=== PATIENT | female | born 1960 | race Caucasian/White ===

== ENCOUNTER 2020-08-15 09:53 | Outpatient (CLI) | payer BC, OTHER, SELFPAY ==
--- NOTE | ~2020-08-15 | XR_ITS ---
XR shoulder RT min 2V DATE: 08/15/2020 10:19 INDICATION: Right shoulder pain TECHNIQUE: 4 views COMPARISON: None FINDINGS: No fracture or dislocation, periosteal reaction or bone destruction or abnormal soft tissue calcification. IMPRESSION: No fracture or dislocation Reviewed, dictated and finalized at location A. D DAY CARE TEACHER IMPRESSION: No fracture or dislocation
--- NOTE | ~2020-08-15 | XR_ITS ---
XR cervical spine 4-5V DATE: 08/15/2020 10:19 INDICATION: Neck pain, shoulder pain. No injury. TECHNIQUE: AP, open-mouth, lateral, swimmer views COMPARISON: None FINDINGS: There is straightening of the cervical spine, which may be secondary to muscle spasm. There is minimal anterolisthesis at C4-5 and C5-6. C1 and C2 are normally aligned and the odontoid process is intact. No fracture or dislocation or lock ed facet or prevertebral soft tissue swelling. Cervical interspaces are preserved. IMPRESSION: Straightening of the cervical spine Minimal anterolisthesis at C4-5 and C5-6 Reviewed, dictated and finalized at location A. KING MACHINE OPERATOR
== END 2020-08-15 09:54 | disposition home or self-care (01) ==
PROVIDERS: PCP Family Medicine; Visit Provider Physician Assistant
DX: M54.2 Cervicalgia (principal); M25.511 Pain in right shoulder
CPT/HCPCS: 72050; 73030

== ENCOUNTER → 2021-10-21 08:59 | Outpatient (CLI) | payer BC, SELFPAY ==
[2021-10-21 11:23] LABS: SARS-CoV-2 RNA PCR Positive
== END ==
PROVIDERS: PCP Family Medicine; Visit Provider Family Medicine
DX: U07.1 COVID-19 (principal)
CPT/HCPCS: C9803; U0003; U0005

== ENCOUNTER 2021-10-21 14:23 | Outpatient (RCR) | payer BC, SELFPAY ==
[2021-10-21 15:02] VITALS: BP 162/57; PULSE 79; RESP 16; TEMP 36.5; O2SAT 97
[2021-10-21] MEDS: ACETAMINOPHEN 325 MG TABLET 650 MG PO (15:05)
[2021-10-21] MEDS: FAMOTIDINE 20 MG TABLET PO (15:05)
[2021-10-21] MEDS: diphenhydrAMINE HCl CAP 25 MG CAPSULE PO (15:05)
[2021-10-21] MEDS: BEBTELOVIMAB 175 MG/2 ML VIAL IV PUSH (15:30)
[2021-10-21 16:10] VITALS: BP 147/53; PULSE 73; RESP 16; O2SAT 96
== END 2021-10-21 16:00 ==
LOC: AMCINF 14:23
PROVIDERS: Referring Provider Family Medicine; Visit Provider Internal Medicine Hematology & Oncology
DX: U07.1 COVID-19 (principal); I10 Essential (primary) hypertension
CPT/HCPCS: A9270; M0222; Q0222

== ENCOUNTER 2022-07-20 07:32 | Outpatient (RCR) | payer BC, SELFPAY ==
[2022-07-19 15:39] LABS: Hematocrit 27.3 % (37.0-47.0); Hemoglobin 7.3 g/dL (12.0-15.0)
[2022-07-20] VITALS (11 sets, daily range): BP systolic 129–163; BP diastolic 42–66; PULSE 80–97; RESP 15–18; TEMP 36.3–36.9; O2SAT 95–99
[2022-07-20] MEDS: SODIUM CHLORIDE 0.9% IV 250 ML 30 ML IV CONT (07:50)
== END 2022-10-17 23:59 | disposition home or self-care (01) ==
LOC: ANHCPCTRAN 07:32
PROVIDERS: PCP Physician Assistant; Visit Provider Family Medicine
DX: D64.9 Anemia, unspecified (principal)
CPT/HCPCS: 36415; 36430; 85014; 85018; 86850; 86900; 86901; 86920; J7050; P9016

== ENCOUNTER 2022-08-26 11:28 | Emergency (ER) | payer BC, SELFPAY ==
--- NOTE | ~2022-08-26 | XR_ITS ---
EXAMINATION: XR chest 2V Exam Date/Time: 08/26/2022 15:30 ROD PLACER HISTORY: leukocytosis, SEVERE ABDOMINAL PAIN Comparison: None available. RESULT: Lines, tubes, and devices: None. Lungs and pleura: Low lung volumes with crowding.. Cardiomediastinal silhouette: Stable. Other: No acute osseous or upper abdominal finding. IMPRESSION: No acute cardiopulmonary process. Reviewed, dictated and finalized at location K. PLACER
--- NOTE | ~2022-08-26 | CT_ITS ---
EXAMINATION: CT abdomen pelvis w con DATE: 08/26/2022 14:36 INDICATION: abd pain, vomiting, leukocytosis TECHNIQUE: Computed tomography (CT) of the abdomen and pelvis was performed with 100 mL Omnipaque-350 intravenous contrast. Automated exposure control and iterative reconstruction technique were employe d. The dose-length product was 1474.89 mGy-cm. COMPARISON: Ultrasound abdomen 03/21/2018. FINDINGS: Lower thorax: Multiple pulmonary nodules, measuring up to 7 mm. Liver: 4.8 cm indeterminate lobular left lobe mass. No other liver mass. Biliary/Gallbladder: Gallbladder is absent. No bile duct dilation. Pancreas: No mass or duct dilation. Spleen: Normal. Adrenals:No mass. Kidneys: No mass, stone, or hydronephrosis. GI tract: No small or large bowel dilation. The appendix is not visualized. Irregular wall thickening of the cecum with surrounding inflammatory change/spiculation. Mesentery/Peritoneum: No ascites, mass, or free air. Multiple prominent periaortic nodes. Enlarged ri ght lower quadrant mesenteric nodes. Retroperitoneum: No mass. Pelvis: Pelvic organs are within normal limits. Soft Tissues: Soft tissues and body wall unremarkable. Bones: No acute osseous finding. IMPRESSION: Multiple pulmonary nodules, suspicious for metastatic disease. Indeterminate hepatic mass, consider l iver MRI for further evaluation. Cecal mass, concerning for carcinoma, with adjacent right lower quad rant mesenteric lymphadenopathy. Reviewed, dictated and finalized at location K. NEWS DIRECTOR IMPRESSION: Multiple pulmonary nodules, suspicious for metastatic disease. Indeterminate he patic mass, consider liver MRI for further evaluation. Cecal mass, concerning f or carcinoma, with adjacent right lower quadrant mesenteric lymphadenopathy.
[2022-08-26 11:42] VITALS: BP 149/77; PULSE 98; RESP 18; TEMP 36.6; O2SAT 95
[2022-08-26 12:36] LABS: Basophils Absolute Auto 0.1 K/mm3 (0.0-0.1); Basophils Percent Auto 0.3 % (0.2-1.2); Hematocrit 34.5 % (37.0-47.0); Hemoglobin 9.9 g/dL (12.0-15.0); Immature Granulocyte Percent A 0.5 % (0-0.5); Lymphocytes Percent Auto 2.9 % (18.3-44.2); Mean Corpuscular HGB Conc 28.7 g/dl (32-36); Mean Corpuscular Hemoglobin 21.6 pg (26-34); Mean Corpuscular Volume 75.2 fl (80-100); Mean Platelet Volume 9.2 fl (7.4-10.4); Monocytes Absolute Auto 0.7 K/mm3 (0.1-0.6); Monocytes Percent Auto 3.5 % (2.6-8.5); Neutrophils Absolute Auto 19.5 K/mm3 (1.3-6.7); Neutrophils Percent Auto 92.8 % (45.5-73.1); Platelet Count Result 326 k/mm3 (150-375); Red Blood Count 4.59 M/mm3 (4.2-5.4)
[2022-08-26 12:46] LABS: Alanine Aminotransferase 20 U/L (6-35); Albumin Level 4.4 g/dL (3.5-5.1); Alkaline Phosphatase 85 U/L (38-126); Anion Gap 6 mmol/L (8-16); Aspartate Amino Transferase 23 U/L (14-36); Bilirubin,Total 0.8 mg/dL (0.2-1.3); Blood Urea Nitrogen 12 mg/dL (7-17); Calcium 8.5 mg/dL (8.4-10.2); Carbon Dioxide 29 mmol/L (22-30); Chloride 98 mmol/L (98-107); Estimated CRCL calculation 123 ml/min; Estimated Glomerular Filt Rate > 60; Glucose 133 mg/dL (65-110); Lipase 24 U/L (23-300); Potassium 3.7 mmol/L (3.4-5.0); Sodium 133 mmol/L (137-145)
[2022-08-26 14:15] LABS: Appearance Urine Clear (Clear); Bacteria Urine Rare /hpf; Bilirubin Urine Negative (Negative); Blood Urine Negative (Negative); Color Urine Yellow (Yellow); Glucose Urine UA Negative (Negative); Ketones Urine Trace mg/dL (Negative); Leukocyte Esterase Ur 1+ LEU/UL (Negative); Need Manual Microscopic Reviewed; Nitrate Urine Negative (Negative); Non Pathogenic Casts 0-2; Protein Urine Trace mg/dL (Negative); RBC Urine 0-2 /hpf (0-2); Specific Grav Ur 1.019 (1.001-1.035); Squamous Epithelial Cell Urine None seen /hpf (Few); WBC Urine 0-5 /hpf
[2022-08-26 14:17] LABS: Add Urine Microscopic? YES
[2022-08-26] MEDS: ONDANSETRON INJ 4 MG/2 ML VIAL IV PUSH (14:19)
[2022-08-26] MEDS: MORPHINE SULFATE (*CRX) 4 MG/ML INJ IV PUSH (14:19)
[2022-08-26] MEDS: SODIUM CHLORIDE 0.9% IV 500 ML 999 ML IV CONT (14:20)
--- NOTE | 2022-08-26 14:35 | ED.ABDPAIN ---
HPI - Abdominal Pain General Chief Complaint: Abdominal Pain Stated Complaint: abdominal pain/back pain Time Seen by Provider: 08/26/22 13:34 Source: patient Mode of arrival: ambulatory Limitations: no limitations History of Present Illness HPI narrative: This is a 62 year old female that presents to the ER for abdominal pain ongoing since yesterday. Associated with nausea and vomiting. Reports she was recently diagnosed with colon cancer and is due for surgery. Denies fever, dysuria or hematuria. Related Data Home Medications Medication Instructions Recorded Confirmed meloxicam 15 mg tablet 15 mg PO DAILY PRN Pain 10/21/21 07/20/22 omeprazole 20 mg tablet,delayed 20 mg PO DAILY 10/21/21 07/20/22 release cholecalciferol (vitamin D3) 125 125 mcg PO DAILY 07/12/22 07/20/22 mcg (5,000 unit) capsule alprazolam 0.5 mg tablet 0.5 mg PO TID PRN Anxiety 07/18/22 07/20/22 escitalopram oxalate 20 mg tablet 20 mg PO DAILY 07/18/22 07/20/22 hydrochlorothiazide 25 mg tablet 25 mg PO DAILY 07/18/22 07/20/22 ramipril 10 mg capsule 10 mg PO DAILY 07/18/22 07/20/22 Allergies Allergy/AdvReac Type Severity Reaction Status Date / Time No Known Allergies Allergy Mild Verified 08/26/22 11:46 Review of Systems Review of Systems: CONSTITUTIONAL: Denies fever GASTROINTESTINAL: Reports abdominal pain, nausea, vomiting. Denies diarrhea. GENITOURINARY: Denies dysuria or hematuria. All systems reviewed & are unremarkable except as noted in HPI and below PMFSH Past Medical History Medical History (Updated 08/26/22 @ 16:37 by Vianney Mccoy PA-C) Allergic rhinitis, unspecified Anemia Anxiety Esophageal reflux Essential (primary) hypertension Insomnia, unspecified Major depressive disorder, recurrent, moderate Morbid (severe) obesity due to excess calories Obstructive sleep apnea Postprocedural hypothyroidism Sleep apnea Vitamin D deficiency, unspecified Surgical History Surgical History History of hysterectomy uterus only, bladder suspension 12/2013 History of thyroidectomy 2008 Hx of cholecystectomy 2002 S/P removal of thyroid nodule 1991 Family History Family History (Updated 07/20/22 @ 07:50 by Judith Machuca RN) Mother Colitis Mouth cancer Age-related macular degeneration Father Bladder cancer Alzheimer disease Depression COPD (chronic obstructive pulmonary disease) Carcinoma of colon Age-related macular degeneration Hypertension Social History Social History (Updated 07/18/22 @ 14:10 by Julia Amin MA) Smoking status: Former smoker Smoking end date: 07/02/79 Alcohol intake: never Substance use: never Lack of Transportation: No Lack of Food: Never True Current Housing: I Have Housing Concerned About Future Housing: No Difficulty Paying Gas/Electric Bills: No Difficulty Paying for Meds: No Currently Unemployed: No Living arrangements: with family Occupation/Education: occupation Gender identity (if verbalized by the patient): Female Sexual Orientation (if Verbalized by the Patient): Straight or Heterosexual Exam Narrative: GENERAL: Well-appearing, well-nourished, and in no acute distress. HEAD: Normocephalic, atraumatic. EYES: EOMI. CHEST: Clear to auscultation. No respiratory distress. No wheezes rales or rhonchi HEART: Regular rate and rhythm. No murmur heard. Normal peripheral pulses. ABDOMEN: Soft, nondistended, normal active bowel sounds. Tender to palpation throughout the right side of the abdomen, without guarding EXTREMITIES: Normal range of motion. No edema. SKIN: Warm, dry, no rash. NEURO: No focal deficits. Alert and oriented x3. PSYCH: Normal mood and affect Course Course Emergency Course: Patient and family updated on work-up and agree with plan of care Consultations Consultation #1: Spoke with Dr. Rapp about patient and workup. Would like patient started on antibio
[2022-08-26] MEDS: PANTOPRAZOLE SODIUM IV 40 MG VIAL IV PUSH (15:58)
[2022-08-26 16:41] VITALS: BP 142/84; PULSE 89; RESP 17; O2SAT 98
== END 2022-08-26 16:53 | disposition home or self-care (01) ==
PROVIDERS: Emergency Medicine; Emergency Provider Physician Assistant; PCP Family Medicine
DX: R10.9 Unspecified abdominal pain (principal); D72.829 Elevated white blood cell count, unspecified; C18.9 Malignant neoplasm of colon, unspecified; D64.9 Anemia, unspecified; K21.9 Gastro-esophageal reflux disease without esophagitis; I10 Essential (primary) hypertension; E66.01 Morbid (severe) obesity due to excess calories; E89.0 Postprocedural hypothyroidism; Z68.41 Body mass index [BMI] 40.0-44.9, adult; G47.30 Sleep apnea, unspecified; E55.9 Vitamin D deficiency, unspecified; Z90.711 Acquired absence of uterus with remaining cervical stump; Z87.891 Personal history of nicotine dependence
CPT/HCPCS: 36415; 71046; 74177; 80053; 81001; 83690; 85025; 96365; 96366; 96375; 99284; C9113; J0131; J2270; J2405; J7040; Q9967

== ENCOUNTER 2023-09-30 19:07 | Observation (INO) | payer OTHER, SELFPAY ==
[2023-09-30] VITALS (10 sets, daily range): BP systolic 138–145; BP diastolic 80–108; PULSE 77–100; RESP 11–18; TEMP 35.7–36.4; O2SAT 90–100
--- NOTE | ~2023-09-30 | CT_ITS ---
EXAMINATION: CT cervical spine wo con DATE: 09/30/2023 21:26 INDICATION: Syncope. TECHNIQUE: Computed tomography (CT) of the cervical spine was performed without intravenous contrast. Automated exposure control and iterative reconstruction technique were employed. The dose-length pro duct was 541.27 mGy-cm. COMPARISON: None FINDINGS: There is 7 degrees levocurvature of cervicothoracic spine. Vertebral body heights are sean l. Intervertebral disc heights are normal. The following disc levels are specifically discussed: C2-C3: There is no uncovertebral joint osteoarthritis. There is moderate right and severe left facet joint osteoarthritis. There is no neural foraminal stenosis. There is no central canal stenosis. C3-C4: There is mild left uncovertebral joint osteoarthritis. There is severe bilateral facet joint o steoarthritis. There is no neural foraminal stenosis. There is no central canal stenosis. C4-C5: There is mild bilateral uncovertebral joint osteoarthritis. There is severe bilateral facet daya int osteoarthritis. There is mild left neural foraminal stenosis. There is no central canal stenosis. C5-C6: There is no uncovertebral joint osteoarthritis. There is severe bilateral facet joint osteoart hritis. There is mild left neural foraminal stenosis. There is no central canal stenosis. C6-C7: There is no uncovertebral joint osteoarthritis. There is mild bilateral facet joint osteoarthr itis. There is no neural foraminal stenosis. There is no central canal stenosis. C7-T1: There is no uncovertebral joint osteoarthritis. There is severe bilateral facet joint osteoart hritis. There is mild left neural foraminal stenosis. There is no central canal stenosis. IMPRESSION: 1. No fracture. 2. Mild cervical spondylosis. Reviewed, dictated and finalized at location E.
--- NOTE | ~2023-09-30 | CT_ITS ---
EXAMINATION: CT brain wo con DATE: 09/30/2023 21:26 INDICATION: Syncope. TECHNIQUE: Computed tomography (CT) of the head was performed without intravenous contrast. The mA wa s adjusted according to patient size. Iterative reconstruction technique was employed. The dose-lengt h product was 681.00 mGy-cm. COMPARISON: None FINDINGS: There is no intracranial hemorrhage, acute infarction, or abnormal intracranial mass lesion . The ventricles are normal in size. There is mild mucosal thickening in the paranasal sinuses. The m astoid air cells are normal. The orbits are normal. IMPRESSION: 1. Normal brain. Reviewed, dictated and finalized at location E. IMPRESSION: 1. Normal brain.
--- NOTE | ~2023-09-30 | CT_ITS ---
[facility] DATE: 09/30/2023 21:26 INDICATION: Syncope. Colon cancer. TECHNIQUE: Computed tomography (CT) of the chest, abdomen, pelvis, thoracic spine, and lumbar spine w as performed with 100 mL Omnipaque 350 intravenous contrast. Automated exposure control and iterative reconstruction technique were employed. The dose-length product was 1811.32 mGy-cm. COMPARISON: None FINDINGS: CHEST CT: There are a few nodules in the lungs measuring up to 9 mm. A calcified left lung nodule and calcified left hilar lymph nodes are consistent with old granulomatous disease. No pleural effusion. There is a right internal iliac port with tip in proximal right atrium. The heart size is normal. There are co ronary artery calcifications. No pericardial effusion. ABDOMEN/PELVIS CT: There is a 3.2 cm hypodense mass in right hepatic lobe. There are changes of cholecystectomy. The spl een, pancreas, adrenal glands, and kidneys are normal. There are changes of right hemicolectomy. Ther e are no dilated loops of bowel. There is peritoneal nodularity, consistent with carcinomatosis. Ther e is no ascites. There are no pathologically enlarged lymph nodes. THORACIC SPINE CT: There is 3 degrees levocurvature of thoracic spine. There is mild chronic anterior wedging of T7 and T8 vertebral bodies. There is a burst fracture of T12 with 1/5 loss of height and retropulsion of bon e 3 mm into central spinal canal. There is mildly distended T7-T8. There is mildly decreased disc hei ght at a few other levels. There is multilevel facet joint osteoarthritis, severe at a few levels. Th ere is multilevel mild neural foraminal stenosis bilaterally. There is mild central canal stenosis at T7-T8 and T12. LUMBAR SPINE CT: There is 7 degrees levocurvature of lumbar spine. There is 3 mm anterolisthesis of L5 on S1. Vertebra l body heights are normal. Intervertebral disc heights are normal. The following disc levels are spec ifically discussed: L1-L2: The disc does not extend beyond the endplate margin. There is moderate bilateral facet joint o steoarthritis. There is no neural foraminal stenosis. There is no central canal stenosis. L2-L3: The disc is bulging. There is moderate bilateral facet joint osteoarthritis. There is mild juliet ateral neural foraminal stenosis. There is no central canal stenosis. L3-L4: The disc is bulging. There is severe bilateral facet joint osteoarthritis. There is mild bilat eral neural foraminal stenosis. There is no central canal stenosis. L4-L5: The disc is bulging. There is severe bilateral facet joint osteoarthritis. There is moderate r ight and mild left neural foraminal stenosis. There is mild central canal stenosis. L5-S1: The disc does not extend beyond the endplate margin. There is severe bilateral facet joint ost eoarthritis. There is mild bilateral neural foraminal stenosis. There is no central canal stenosis. IMPRESSION: 1. Lung nodules, liver mass, and peritoneal nodularity, consistent metastatic disease. 2. Age-indeterminate burst fracture of T12. Reviewed, dictated and finalized at location E. IMPRESSION: 1. Lung nodules, liver mass, and peritoneal nodularity, consistent metastatic d isease. 2. Age-indeterminate burst fracture of T12.
--- NOTE | 2023-09-30 19:24 | ECG_ITS ---
Measurements Intervals Waterflow Rate: 89 P: 52 IL: 154 QRS: 22 QRSD: 84 T: 33 QT: 348 QTc: 426 Interpretive Statements SINUS RHYTHM EARLY PRECORDIAL R/S TRANSITION LEFT VENTRICULAR HYPERTROPHY WITH ST-T CHANGE CONSIDER INFERIOR INFARCT, AGE INDETERMINATE ST-T WAVE ABNORMALITY IN ANTEROLATERAL LEADS- CONSIDER ISCHEMIA ABNORMAL ECG NO PREVIOUS ECG AVAILABLE FOR COMPARISON Electronically Signed On 09-30-2023 20:04:55 CDT by Richard Wright D.O.
--- NOTE | 2023-09-30 19:24 | ED.GENADULT ---
HPI - General Adult General Chief complaint: Fall Stated complaint: fall Time Seen by Provider: 09/30/23 19:24 History of Present Illness HPI narrative: Patient is a 63-year-old female with history of metastatic colon cancer, currently receiving chemotherapy, here after a fall that occurred yesterday. She states that around 1:00 p.m. yesterday she was in her kitchen and reached upwards for a bowl out of her cabinet and the next thing that she she knew she woke up on the floor. This was witnessed by her son. She was reportedly unconscious for maybe 10-15 seconds and quickly woke back up. She denies any seizure-like activity, bowel or bladder incontinence. She fell flat backwards onto her back. Unsure if she hit her head. She notes that she has been having middle back pain since yesterday. She notes pain is severe, sharp, worsened pain with any movement including flexion extension. She additionally notes that she gets lightheaded when the pain gets severe and with movement. She denies any bowel or bladder incontinence. She denies any saddle anesthesia. She denies any numbness or weakness in her lower extremities. She is on Eliquis for prior PE and DVT. Related Data Home Medications Medication Instructions Recorded Confirmed meloxicam 15 mg tablet 15 mg PO DAILY PRN Pain 10/21/21 07/20/22 cholecalciferol (vitamin D3) 125 125 mcg PO DAILY 07/12/22 07/20/22 mcg (5,000 unit) capsule apixaban 5 mg tablet (Eliquis) mg 09/30/23 potassium chloride 20 mEq meq PO 09/30/23 tablet,extended release(part/cryst) Allergies Allergy/AdvReac Type Severity Reaction Status Date / Time No Known Allergies Allergy Mild Verified 09/30/23 19:15 [facility] Past Medical History Medical History (Updated 09/30/23 @ 22:44 by Eugenie Mayfield MD) Allergic rhinitis, unspecified Anemia Anxiety Esophageal reflux Essential (primary) hypertension Insomnia, unspecified Major depressive disorder, recurrent, moderate Morbid (severe) obesity due to excess calories Obstructive sleep apnea Postprocedural hypothyroidism (Unknown) Sleep apnea Vitamin D deficiency, unspecified Surgical History Surgical History History of hysterectomy uterus only, bladder suspension 12/2013 History of thyroidectomy 2009 Hx of cholecystectomy 2002 S/P removal of thyroid nodule 1991 Family History Family History (Updated 07/20/22 @ 07:50 by Judith Machuca RN) Mother Colitis Mouth cancer Age-related macular degeneration Father Bladder cancer Alzheimer disease Depression COPD (chronic obstructive pulmonary disease) Carcinoma of colon Age-related macular degeneration Hypertension Social History Social History (Updated 07/18/22 @ 14:10 by Julia Amin MA) Smoking status: Former smoker Smoking end date: 07/02/79 Alcohol intake: never Substance use: never Lack of Transportation: No Lack of Food: Never True Current Housing: I Have Housing Concerned About Future Housing: No Difficulty Paying Gas/Electric Bills: No Difficulty Paying for Meds: No Currently Unemployed: No Living arrangements: with family Occupation/Education: occupation Gender identity (if verbalized by the patient): Female Sexual Orientation (if Verbalized by the Patient): Straight or Heterosexual Exam Narrative: GENERAL: Well-appearing, well-nourished, and in no acute distress. HEAD: Normocephalic, atraumatic. EYES: PERRLA and EOMI. ENT: Nares clear. Mucous membranes moist. NECK: Supple. CHEST: Clear to auscultation. No respiratory distress. HEART: Regular rate and rhythm. Normal peripheral pulses. no chest wall tenderness. ABDOMEN: Soft, Mild diffuse tenderness without rebound or guarding, nondistended. EXTREMITIES: Normal range of motion. No edema. Mild midline lower thoracic spinal tenderness, no step-offs appreciated. Negative straight leg raise. SKIN: Warm, dry,
[2023-09-30] MEDS: MORPHINE SULFATE (*CRX) 4 MG/ML INJ IV PUSH (20:03)
[2023-09-30] MEDS: ONDANSETRON INJ 4 MG/2 ML VIAL IV PUSH (20:03)
--- NOTE | 2023-09-30 20:08 | PC.NURSE ---
Patient has power injectable port. Card copied and placed in patient chart.
[2023-09-30 20:16] LABS: Eosinophils Percent Auto 0.5 % (0-4.4); Hematocrit 39.7 % (37.0-47.0); Hemoglobin 12.6 g/dL (12.0-15.0); Immature Granulocyte Absolute 0.04 K/mm3 (0.00-0.031); Lymphocytes Percent Auto 20.2 % (18.3-44.2); Mean Corpuscular HGB Conc 31.7 g/dl (32-36); Mean Corpuscular Hemoglobin 30.5 pg (26-34); Mean Corpuscular Volume 96.1 fl (80-100); Mean Platelet Volume 9.6 fl (7.4-10.4); Neutrophils Absolute Auto 3.1 K/mm3 (1.3-6.7); Neutrophils Percent Auto 77.3 % (45.5-73.1); Platelet Count Result 215 k/mm3 (150-375); Red Blood Count 4.13 M/mm3 (4.2-5.4); Red Cell Distribution Width 17.2 % (11.5-14.5)
[2023-09-30 20:33] LABS: Lactic Acid Reflex 1.4 mmol/L (0.7-2.0)
[2023-09-30 20:34] LABS: Alanine Aminotransferase 28 U/L (6-35); Alkaline Phosphatase 67 U/L (38-126); Anion Gap 5 mmol/L (4-12); Aspartate Amino Transferase 24 U/L (14-36); Bilirubin,Total 0.8 mg/dL (0.2-1.3); Blood Urea Nitrogen 22 mg/dL (7-17); Calcium 8.6 mg/dL (8.4-10.2); Carbon Dioxide 31 mmol/L (22-30); Chloride 98 mmol/L (98-107); Estimated CRCL calculation 116 ml/min; Estimated Glomerular Filt Rate > 60; Glucose 110 mg/dL (65-110); Potassium 3.3 mmol/L (3.4-5.0); Prothrombin Time 13.9 Seconds (11.1-14.7); Sodium 134 mmol/L (137-145)
[2023-09-30 20:35] LABS: Partial Thromboplastin Time 25.5 Seconds (22.3-36.8)
[2023-09-30 20:44] LABS: Troponin I < 0.012 ng/mL (0.000-0.034)
[2023-09-30 20:51] LABS: Creatine Kinase 46 U/L (30-135)
[2023-09-30] MEDS: HYDROmorphone HCL INJ (*CRX) 1 MG/ML SYR IV PUSH (21:50)
[2023-09-30 22:55] LABS: Appearance Urine Clear (Clear); Bilirubin Urine Negative (Negative); Blood Urine Negative (Negative); Color Urine Yellow (Yellow); Glucose Urine UA Negative (Negative); Ketones Urine Negative (Negative); Leukocyte Esterase Ur Negative LEU/UL (Negative); Nitrate Urine Negative (Negative); Protein Urine Negative (Negative); Urobilinogen Urine 0.2 mg/dL (<2.0)
[2023-09-30 23:00] LABS: Add Urine Microscopic? NO; Specific Grav Ur 1.035 (1.001-1.035)
[2023-09-30] MEDS: LACTATED RINGERS 1,000 ML 999 ML IV CONT (23:02)
[2023-09-30] MEDS: CENTRAL LINE FLUSH 10 ML IV PUSH (23:02)
[2023-09-30] MEDS: ACETAMINOPHEN 500 MG TABLET 1000 MG PO (23:03)
[2023-09-30] MEDS: POTASSIUM BICARBONATE 25 MEQ TABEF 50 MEQ PO (23:35)
--- NOTE | 2023-09-30 23:57 | ADMGEN ---
This patient, Nori Thurston, was admitted to Medical Room 249-01. Patient/family oriented to hospital policies and general routines including ID bracelet, bed and alarms, visiting hours, pain management, procedures, bathroom and other care routines, personal items, smoking policy, room service/diet, and visiting hours. Information on how to activate the Rapid Response Team has been discussed. Patient/Family are encouraged to report perceived risks to care and to ask questions if they do not understand what they are told or what they should do.
[2023-10-01] VITALS (11 sets, daily range): BP systolic 121–164; BP diastolic 66–72; PULSE 75–89; RESP 14–18; TEMP 36.2–37; O2SAT 91–95; BMI 43.1
--- NOTE | 2023-10-01 | ECHO_ITS ---
Patient Info Name: Nori Thurston Age: 63 years : 1960 Gender: Female Ht: 65 in Wt: 255 lbs BSA: 2.36 m2 HR: 83 bpm BP: 149 / 66 mmHg Technical Quality: Fair Exam Date: 10/01/2023 8:58 AM Exam Location: Echo Lab Patient Status: Outpatient Admit Date: 09/30/2023 Staff Ordering Physician: Javon Echols MD Director Of Business Development: Luis Lopes RDCS Attending Provider: Javon Echols MD Referring Physician: Onesiom CORBETT; Exam Type: CA echo doppler color flow Study Info Indications R55 - Syncope and collapse Complete two-dimensional, color flow and Doppler transthoracic echocardiogram is performed. Summary 1. Complete two-dimensional, color flow and Doppler transthoracic echocardiogram is performed. 2. Left ventricular chamber dimension is normal. 3. Left ventricular systolic function is normal, estimated at 60-65%. 4. The left ventricular diastolic function is grade I diastolic dysfunction. 5. E/e' 7 is not elevated. 6. There is trace tricuspid valve regurgitation. 7. No pulmonary hypertension, estimated pulmonary arterial systolic pressure is 37 mmHg. Left Ventricle E/e' 7 is not elevated. Left ventricular chamber dimension is normal. Left ventricular systolic function is normal, estimated at 60-65%. The left ventricular diastolic function is grade I diastolic dysfunction. Right Ventricle Right ventricular chamber dimension is normal. Right ventricular systolic function is normal. Left Atria Left atrial chamber dimension is normal. Right Atria Right atrial chamber dimension is normal. Aortic Valve The aortic valve is trileaflet. There is no aortic valve stenosis. There is no aortic valve regurgitation. Pulmonic Valve There is no pulmonic regurgitation. Mitral Valve There is no mitral valve stenosis. There is no mitral valve regurgitation. Tricuspid Valve There is trace tricuspid valve regurgitation. No pulmonary hypertension, estimated pulmonary arterial systolic pressure is 37 mmHg. Pericardium/Pleural There is no pericardial effusion. Inferior Vena Cava Normal inferior vena cava with >50% collapse upon inspiration consistent with normal right atrial pressure, 5 mmHg. Aorta The aortic root size at the sinus of Valsalva is normal. Left Ventricular Outflow Tract Name Value Normal LVOT 2D LVOT Diameter 2.1 cm LVOT Doppler LVOT Peak Gradient 6 mmHg LVOT Mean Gradient 3 mmHg LVOT VTI 21 cm LVOT VTI/AV VTI Ratio 0.8 LVOT Stroke Volume 71 ml LVOT CO 5.5 l/min LVOT CI 2.3 l/min/m2 Pulmonic Valve Name Value Normal RVOT Doppler RVOT Peak Gradient 3 mmHg PV Doppler PV Peak Gradient 6 mmHg
--- NOTE | 2023-10-01 01:27 | PM.IMHP ---
H&P: HPI History of Present Illness Date/Time: 10/01/23 01:27 Chief Complaint: 1. Fall 2. Loss of consciousness 3. Back pain Narrative: Nori Thurston is a 63 yo F with a mHx significant for obesity, metastatic colon Ca, GERD, depression w/Anxiety, HTN, Hypothyroidism. 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 She attests to back pain on waking up; it was sharp, rated 10, aggravated by truncal movement; alleviated by immobility; associated by an unstable gait and poor mobility. She does not smoke/chew tobacco, drink alcohol or consume recreational drugs; her family hx is significant for colon ca Work-up findings: WBC 4 Hb 12 PLT 215 Na 134 K 3.3 HCO3 31 AG 5 BUN 22 Cr 0.50 GFR >60 UA: Unremarkable CTAP: 1. Lung nodules, liver mass, and peritoneal nodularity, consistent metastatic disease. 2. Age-indeterminate burst fracture of T12. CT head: Unremarkable CT cervical spine: 1. No fracture. 2. Mild cervical spondylosis. She will be admitted, evaluated and managed for fall leading to a thoracic spine fracture and syncope Review of Systems Constitutional: Constitutional: Reports fatigue and Reports lethargy Eyes: Eyes: Reports no additional eye complaints ENT: Reports system reviewed and no additional complaints, except as documented Cardiovascular: Cardiovascular: Reports no additional cardiovascular complaints Respiratory: Respiratory: Reports no additional respiratory complaints Gastrointestinal: Gastrointestinal: Reports diarrhea and Reports nausea Genitourinary: Genitourinary: Denies nocturia, Denies dysuria, Denies pelvic pain, Denies flank pain and Denies urinary hesitancy Musculoskeletal: Musculoskeletal: Reports back pain, Denies arthralgias, Denies joint swelling and Denies neck pain Neurologic: Reports system reviewed and no additional complaints, except as documented, Denies Abnormal speech present, Denies abnormal gait, Denies confusion and Denies vertigo Psychiatric: Psychiatric: Reports no additional psychiatric complaints, Reports anxiety, Denies behavioral changes, Denies confusion and Reports depression PMFSH Past Medical History Medical History (Updated 10/01/23 @ 04:10 by Javon Echols MD) Allergic rhinitis, unspecified Anemia Anxiety Depression with anxiety Esophageal reflux Essential (primary) hypertension Insomnia, unspecified Major depressive disorder, recurrent, moderate Morbid (severe) obesity due to excess calories Obstructive sleep apnea Postprocedural hypothyroidism (Unknown) Pulmonary embolism Sleep apnea Vitamin D deficiency, unspecified Surgical History Surgical History History of hysterectomy uterus only, bladder suspension 12/2013 History of thyroidectomy 2008 Hx of cholecystectomy 2002 S/P removal of thyroid nodule 1991 Family History Family History (Updated 07/20/22 @ 07:50 by Judith Machuca RN) Mother Colitis Mouth cancer Age-related macular degeneration Father Bladder cancer Alzheimer disease Depression COPD (chronic obstructive pulmonary disease) Carcinoma of colon Age-related macular degeneration Hypertension Social History Social History (Updated 07/18/22 @ 14:10 by Julia Amin MA) Smoking status: Former smoker Smoking end date: 07/02/79 Alcohol intake: former Substance use: never Do You Feel Safe in your Home?: Yes Lack of Transportation: No Lack of Food: Never
[2023-10-01] MEDS: LACTATED RINGERS 1,000 ML 100 ML IV CONT (01:41)
[2023-10-01] MEDS: POTASSIUM CHLORIDE 20 MEQ PACKET (FOR LIQUID) 40 MEQ PO (05:09)
[2023-10-01 05:44] LABS: Basophils Percent Auto 0.3 % (0.2-1.2); Eosinophils Percent Auto 1.3 % (0-4.4); Hematocrit 35.8 % (37.0-47.0); Hemoglobin 11.3 g/dL (12.0-15.0); Immature Granulocyte Absolute 0.02 K/mm3 (0.00-0.031); Immature Granulocyte Percent A 0.7 % (0-0.5); Lymphocytes Absolute Auto 1.26 K/mm3 (0.9-3.2); Lymphocytes Percent Auto 42.3 % (18.3-44.2); Mean Corpuscular HGB Conc 31.6 g/dl (32-36); Mean Corpuscular Hemoglobin 30.5 pg (26-34); Mean Corpuscular Volume 96.5 fl (80-100); Mean Platelet Volume 9.5 fl (7.4-10.4); Monocytes Absolute Auto 0.1 K/mm3 (0.1-0.6); Neutrophils Absolute Auto 1.6 K/mm3 (1.3-6.7); Neutrophils Percent Auto 53.4 % (45.5-73.1); Platelet Count Result 193 k/mm3 (150-375); Red Blood Count 3.71 M/mm3 (4.2-5.4); Red Cell Distribution Width 17.2 % (11.5-14.5)
[2023-10-01 05:58] LABS: Alanine Aminotransferase 22 U/L (6-35); Albumin Level 3.4 g/dL (3.5-5.1); Alkaline Phosphatase 60 U/L (38-126); Anion Gap 1 mmol/L (4-12); Aspartate Amino Transferase 19 U/L (14-36); Bilirubin,Total 0.9 mg/dL (0.2-1.3); Blood Urea Nitrogen 17 mg/dL (7-17); Calcium 8.2 mg/dL (8.4-10.2); Carbon Dioxide 32 mmol/L (22-30); Chloride 97 mmol/L (98-107); Estimated CRCL calculation 121 ml/min; Estimated Glomerular Filt Rate > 60; Glucose 96 mg/dL (65-110); Potassium 3.7 mmol/L (3.4-5.0); Sodium 130 mmol/L (137-145)
[2023-10-01] MEDS: CENTRAL LINE FLUSH 10 ML IV PUSH ×3 (06:06→22:11)
[2023-10-01] MEDS: LEVOTHYROXINE SODIUM 150 MCG TABLET PO (06:07)
[2023-10-01] MEDS: LEVOTHYROXINE SODIUM 25 MCG TABLET PO (06:07)
[2023-10-01] MEDS: HYDROmorphone HCL INJ (*CRX) 1 MG/ML SYR IV PUSH (06:07)
[2023-10-01] MEDS: ramipriL 5 MG CAPSULE 20 MG PO (10:13)
[2023-10-01] MEDS: PANTOPRAZOLE 40 MG TABLET PO (10:13)
[2023-10-01] MEDS: CHOLECALCIFEROL 1,000 UNITS TABLET 5000 UNITS PO (10:13)
[2023-10-01] MEDS: APIXABAN 5 MG TABLET PO ×2 (10:13→17:40)
[2023-10-01] MEDS: ESCITALOPRAM OXALATE 10 MG TABLET 20 MG PO (10:13)
[2023-10-01] MEDS: SODIUM CHLORIDE 0.9% IV 1,000 ML 100 ML IV CONT ×2 (10:14→20:30)
--- NOTE | 2023-10-01 11:33 | WPDNEURCNPN ---
Assessment and Plan Assessment and plan (1) T12 burst fracture: Code(s): S22.081A - Stable burst fracture of T11-T12 vertebra, initial encounter for closed fracture Status: Acute Assessment and Plan: The patient is a pleasant 63-year-old female who had what sounds like a syncopal type episode in her kitchen on 09/29/2023 while reaching for something, she had brief loss of consciousness and awoke with immediate midline lower thoracic back pain. she was found to have an acute T12 burst fracture with me mild retropulsion but no significant central stenosis at this level. This fracture also appears stable as the bony posterior elements are intact. I discussed her diagnosis and treatment plan with the patient, we will plan to treat her in a LSO brace for the next 3 months To allow for healing. A brace has been provided to the patient already. She is to wear this when upright and mobilizing and can remove when lying reclined, sleeping at night, and also for showers. No lifting greater than 8 pounds. She should return back to our [facility] office in 6-8 weeks with repeat thoracolumbar upright AP/ Lat x-rays while in the brace done just prior to this visit. I will leave our office information/ number for her to call when she is discharged from the hospital. Consult date: 10/01/23 Reason for consult: T12 Burst fracture HPI: Nori Thurston is a 63 year old female with PMHx for metastatic colon Ca (receiving chemo txns currently), hx of DVT/PE on eliquis, HTN, ELIJAH, Depression, who presented to the ER Dept on the evening of 09/30/23 after having progressive back pain after a fall on 09/28/33. The patient had whats sounds like a syncopal type fall while she reaching for something in her kitchen. She is amnestic to the event, reportedly family found her lying on her back and she was unconscious for 10-15 minutes. She admits to immediate midline back pain. She denies any wrap-around pain nor any symptoms radiating further into her legs. She also denies any focal weakness or paresthesias. Patient did not lose control of her bladder or bowels during this episode. We were consulted after CT abdomen and pelvis revealed a T12 burst type fracture. The patient does admit to falling approximately 2 months ago while on her side but did not have any back pain leading up to this recent fall 2 days ago. Review of Systems Review of Systems: All systems reviewed & are unremarkable except as noted in HPI and below PMFSH Past Medical History Medical History (Updated 10/01/23 @ 12:48 by Marilynn Hanson PA-C) Allergic rhinitis, unspecified Anemia Anxiety Depression with anxiety Esophageal reflux Essential (primary) hypertension Insomnia, unspecified Major depressive disorder, recurrent, moderate Morbid (severe) obesity due to excess calories Obstructive sleep apnea Postprocedural hypothyroidism (Unknown) Pulmonary embolism Sleep apnea Vitamin D deficiency, unspecified Surgical History Surgical History History of hysterectomy uterus only, bladder suspension 12/2013 History of thyroidectomy 2008 Hx of cholecystectomy 2002 S/P removal of thyroid nodule 1991 Family History Family History (Updated 07/20/22 @ 07:50 by Judith Machuca RN) Mother Colitis Mouth cancer Age-related macular degeneration Father Bladder cancer Alzheimer disease Depression COPD (chronic obstructive pulmonary disease) Carcinoma of colon Age-related macular degeneration Hypertension Social History Social History (Updated 07/18/22 @ 14:10 by Julia Amin MA) Smoking status: Former smoker Smoking end date: 07/02/79 Alcohol intake: former Substance use: never Do You Feel Safe in your Home?: Yes Lack of Transportation: No Lack of Food: Never True Current Housing: I Have Housing Concerned About Future Housing: No Difficulty Paying
[2023-10-01] MEDS: ONDANSETRON INJ 4 MG/2 ML VIAL IV PUSH (11:44)
[2023-10-01] MEDS: ACETAMINOPHEN 325 MG TABLET 650 MG PO (11:48)
[2023-10-01] MEDS: MORPHINE SULFATE (*CRX) 2 MG/ML INJ IV PUSH ×3 (12:10→22:09)
--- NOTE | 2023-10-01 15:53 | PM.IMPN ---
Progress Note: A&P Assessment and Plan (1) Syncope and collapse: Code(s): R55 - Syncope and collapse Status: Acute Assessment and Plan: Probably 2/2 dehydration and Orthostasis IVFs; Orthostatic VS Falls and safety precautions ECHO (2) Fracture, thoracic vertebra, compression: Qualifiers: Encounter type: initial encounter Thoracic vertebra fracture level: T12 Qualified Code(s): S22.080A - Wedge compression fracture of T11-T12 vertebra, initial encounter for closed fracture Code(s): S22.000A - Wedge compression fracture of unspecified thoracic vertebra, initial encounter for closed fracture Status: Acute Assessment and Plan: Neurosurgery consulted - brace given to patient to be worn as directed follow up outpatient for repeat imaging Optimize analgesia (3) Metastatic colon cancer to liver: Code(s): C18.9 - Malignant neoplasm of colon, unspecified; C78.7 - Secondary malignant neoplasm of liver and intrahepatic bile duct Status: Chronic Assessment and Plan: Follows with Oncology; on ChemoRx (4) Anemia: Code(s): D64.9 - Anemia, unspecified Status: Chronic Assessment and Plan: stable, 11.3 and 35.8 Monitor, with goal Hb >7 (5) Essential (primary) hypertension: Code(s): I10 - Essential (primary) hypertension Status: Chronic Assessment and Plan: Resume Ramipril (6) Pulmonary embolism: Code(s): I26.99 - Other pulmonary embolism without acute cor pulmonale Status: Chronic Assessment and Plan: On Eliquis (7) Depression with anxiety: Code(s): F41.8 - Other specified anxiety disorders Status: Chronic Assessment and Plan: Escitalopram, Alprazolam (8) Leucopenia: Code(s): D72.819 - Decreased white blood cell count, unspecified Status: Acute Assessment and Plan: maybe 2/2 chemoRx Monitor (9) Hypokalemia: Code(s): E87.6 - Hypokalemia Status: Resolved Assessment and Plan: 3.7 today continue to monitor Subjective Date/time seen: 10/01/23 15:53 Interval history: Patient reports back pain with movement, only comfortable when lying flat. She would like to eat regular diet. Neurosurgery consulted and will follow recs. Patient would like to follow up at [facility]/ as that's where she gets her other care. Denies SOB, chest pain. PT/OT ordered. ECHO ordered. Review of Systems Review of Systems: All systems reviewed & are unremarkable except as noted in HPI and below Exam Narrative: GENERAL: Well-appearing, well-nourished, and in no acute distress. HEAD: Normocephalic, atraumatic. EYES: PERRLA and EOMI. ENT: Nares clear. Mucous membranes moist. NECK: Supple. CHEST: Lungs clear to auscultation. No respiratory distress. HEART: RRR. Normal peripheral pulses. ABDOMEN: Soft, non-tender without rebound or guarding, nondistended. EXTREMITIES: Normal range of motion. No edema. Mild midline lower thoracic spinal tenderness. SKIN: Warm, dry, no rash. NEURO: No focal deficits. Alert and oriented x3. Normal strength and sensation in bilateral lower extremities. PSYCH: Normal mood and affect. Objective Data Vital Signs Vital Signs: Vital Signs - 24 hr 09/30/23 19:08 09/30/23 19:25 09/30/23 21:58 Temperature 96.2 F L 97.5 F L Pulse Rate 100 90 85 Respiratory Rate 18 12 13 Blood Pressure 141/108 H 145/84 H 140/80 Pulse Oximetry 100 94 94 Oxygen Delivery Room Air 09/30/23 22:00 09/30/23 22:15 09/30/23 22:32 Temperature Pulse Rate 84 81 83 Respiratory Rate 11 L 12 14 Blood Pressure Pulse Oximetry 94 93 93 Oxygen Delivery 09/30/23 22:56 09/30/23 23:02 09/30/23 23:19 Temperature Pulse Rate 81 84 82 Respiratory Rate 13 14 13 Blood Pressure 138/86 Pulse Oximetry 90 91 92 Oxygen Delivery 09/30/23 23:32 10/01/23 00:17 10/01/23 00:00 Temperature 97.1 F L Pu
[2023-10-01] MEDS: HYDROcodone/acetaminophen (*CRX) 5-325 MG TABLET 1 TAB PO (15:55)
[2023-10-01] MEDS: CYCLOBENZAPRINE HCL 5 MG TABLET PO (17:40)
[2023-10-01] MEDS: ALPRAZolam (*CRX) 0.5 MG TABLET PO (22:09)
[2023-10-02] VITALS (13 sets, daily range): BP systolic 131–151; BP diastolic 63–97; PULSE 76–126; RESP 14–18; TEMP 36.3–36.9; O2SAT 88–95
[2023-10-02] MEDS: MORPHINE SULFATE (*CRX) 2 MG/ML INJ IV PUSH (04:22)
[2023-10-02] MEDS: HYDROcodone/acetaminophen (*CRX) 5-325 MG TABLET 1 TAB PO ×2 (05:48→20:13)
[2023-10-02] MEDS: LEVOTHYROXINE SODIUM 25 MCG TABLET PO (05:49)
[2023-10-02] MEDS: CENTRAL LINE FLUSH 10 ML IV PUSH ×3 (05:49→20:07)
[2023-10-02] MEDS: LEVOTHYROXINE SODIUM 150 MCG TABLET PO (05:49)
[2023-10-02 05:53] LABS: Basophils Percent Auto 0.6 % (0.2-1.2); Eosinophils Percent Auto 0.6 % (0-4.4); Hematocrit 34.5 % (37.0-47.0); Hemoglobin 10.7 g/dL (12.0-15.0); Immature Granulocyte Absolute 0.03 K/mm3 (0.00-0.031); Immature Granulocyte Percent A 1.9 % (0-0.5); Lymphocytes Absolute Auto 0.87 K/mm3 (0.9-3.2); Lymphocytes Percent Auto 54.4 % (18.3-44.2); Mean Corpuscular Hemoglobin 30.6 pg (26-34); Mean Corpuscular Volume 98.6 fl (80-100); Mean Platelet Volume 9.5 fl (7.4-10.4); Monocytes Absolute Auto 0.1 K/mm3 (0.1-0.6); Neutrophils Absolute Auto 0.6 K/mm3 (1.3-6.7); Neutrophils Percent Auto 37.5 % (45.5-73.1); Platelet Count Result 182 k/mm3 (150-375); Red Cell Distribution Width 17.2 % (11.5-14.5)
[2023-10-02 06:07] LABS: Alanine Aminotransferase 18 U/L (6-35); Albumin Level 2.9 g/dL (3.5-5.1); Alkaline Phosphatase 52 U/L (38-126); Anion Gap 0 mmol/L (4-12); Aspartate Amino Transferase 18 U/L (14-36); Bilirubin,Total 0.4 mg/dL (0.2-1.3); Blood Urea Nitrogen 13 mg/dL (7-17); Calcium 7.4 mg/dL (8.4-10.2); Carbon Dioxide 33 mmol/L (22-30); Chloride 101 mmol/L (98-107); Estimated CRCL calculation 121 ml/min; Estimated Glomerular Filt Rate > 60; Glucose 98 mg/dL (65-110); Potassium 3.6 mmol/L (3.4-5.0); Sodium 134 mmol/L (137-145)
[2023-10-02 06:21] LABS: White Blood Count 1.6 K/mm3 (4.5-10.0)
[2023-10-02] MEDS: ramipriL 5 MG CAPSULE 20 MG PO (10:05)
[2023-10-02] MEDS: CHOLECALCIFEROL 1,000 UNITS TABLET 5000 UNITS PO (10:07)
[2023-10-02] MEDS: APIXABAN 5 MG TABLET PO ×2 (10:08→17:26)
[2023-10-02] MEDS: CYCLOBENZAPRINE HCL 5 MG TABLET PO (10:10)
[2023-10-02] MEDS: PANTOPRAZOLE 40 MG TABLET PO (10:11)
[2023-10-02] MEDS: ESCITALOPRAM OXALATE 10 MG TABLET 20 MG PO (10:12)
[2023-10-02] MEDS: traMADol HCL (*CRX) 50 MG TABLET PO ×2 (10:40→14:45)
--- NOTE | 2023-10-02 15:51 | PM.IMPN ---
Progress Note: A&P Assessment and Plan (1) Syncope and collapse: Code(s): R55 - Syncope and collapse Status: Acute Assessment and Plan: Probably 2/2 dehydration and Orthostasis Orthostatic VS Falls and safety precautions ECHO unrevealing (2) Fracture, thoracic vertebra, compression: Qualifiers: Encounter type: initial encounter Thoracic vertebra fracture level: T12 Qualified Code(s): S22.080A - Wedge compression fracture of T11-T12 vertebra, initial encounter for closed fracture Code(s): S22.000A - Wedge compression fracture of unspecified thoracic vertebra, initial encounter for closed fracture Status: Acute Assessment and Plan: Neurosurgery consulted - brace given to patient to be worn as directed follow up outpatient for repeat imaging Optimize analgesia - PO meds ordered (3) Metastatic colon cancer to liver: Code(s): C18.9 - Malignant neoplasm of colon, unspecified; C78.7 - Secondary malignant neoplasm of liver and intrahepatic bile duct Status: Chronic Assessment and Plan: Follows with Oncology; on ChemoRx (4) Anemia: Code(s): D64.9 - Anemia, unspecified Status: Chronic Assessment and Plan: 10.7 and 34.5 Monitor, with goal Hb >7 (5) Essential (primary) hypertension: Code(s): I10 - Essential (primary) hypertension Status: Chronic Assessment and Plan: Resume Ramipril (6) Pulmonary embolism: Code(s): I26.99 - Other pulmonary embolism without acute cor pulmonale Status: Chronic Assessment and Plan: On Eliquis (7) Depression with anxiety: Code(s): F41.8 - Other specified anxiety disorders Status: Chronic Assessment and Plan: Escitalopram, Alprazolam (8) Leucopenia: Code(s): D72.819 - Decreased white blood cell count, unspecified Status: Acute Assessment and Plan: maybe 2/2 chemoRx Monitor (9) Hypokalemia: Code(s): E87.6 - Hypokalemia Status: Resolved Assessment and Plan: 3.6 today continue PO continue to monitor Subjective Date/time seen: 10/02/23 15:51 Interval history: Patient reports back pain with movement, only comfortable when lying flat. Neurosurgery consulted and will follow recs. Patient would like to follow up at [facility]/ as that's where she gets her other care. Denies SOB, chest pain. Will work on better pain management with PO and plan on d/c when that is improved. Review of Systems Review of Systems: All systems reviewed & are unremarkable except as noted in HPI and below Exam Narrative: GENERAL: Well-appearing, well-nourished, and in no acute distress. HEAD: Normocephalic, atraumatic. EYES: PERRLA and EOMI. ENT: Nares clear. Mucous membranes moist. NECK: Supple. CHEST: Lungs clear to auscultation. No respiratory distress. HEART: RRR. Normal peripheral pulses. ABDOMEN: Soft, non-tender without rebound or guarding, nondistended. EXTREMITIES: Normal range of motion. No edema. Mild midline lower thoracic spinal tenderness. SKIN: Warm, dry, no rash. NEURO: No focal deficits. Alert and oriented x3. Normal strength and sensation in bilateral lower extremities. PSYCH: Normal mood and affect. Objective Data Vital Signs Vital Signs: Vital Signs - 24 hr 10/01/23 16:00 10/01/23 21:12 10/01/23 20:00 Temperature 98.1 F Pulse Rate 89 88 Respiratory Rate 18 Blood Pressure 145/67 H Pulse Oximetry 94 Oxygen Delivery Room Air 10/01/23 20:00 10/02/23 00:00 10/02/23 04:00 Temperature Pulse Rate 85 82 82 Respiratory Rate Blood Pressure Pulse Oximetry Oxygen Delivery 10/02/23 05:11 10/02/23 09:07 10/02/23 09:20 Temperature 98.0 F 97.4 F L Pulse Rate 83 102 H Respiratory Rate 18 17 Blood Pressure 151/71 H 142/85 H Pulse Oximetry 91 95 Oxygen Delivery Room Air 10/02/23 08:00 10/02/23 12:21 10/02/23 12:0
[2023-10-02] MEDS: POTASSIUM CHLORIDE 20 MEQ ER TABLET PO (17:25)
[2023-10-02] MEDS: ALPRAZolam (*CRX) 0.5 MG TABLET PO (20:14)
[2023-10-03] VITALS: PULSE 81
[2023-10-03] MEDS: CYCLOBENZAPRINE HCL 5 MG TABLET PO ×2 (03:30→15:48)
[2023-10-03] MEDS: HYDROcodone/acetaminophen (*CRX) 5-325 MG TABLET 1 TAB PO ×3 (03:30→15:48)
[2023-10-03 04:00] VITALS: PULSE 79
[2023-10-03 05:31] VITALS: BP 144/76; PULSE 83; RESP 18; TEMP 37; O2SAT 92
[2023-10-03] MEDS: LEVOTHYROXINE SODIUM 150 MCG TABLET PO (05:32)
[2023-10-03] MEDS: CENTRAL LINE FLUSH 10 ML IV PUSH ×2 (05:32→15:49)
[2023-10-03] MEDS: LEVOTHYROXINE SODIUM 25 MCG TABLET PO (05:32)
[2023-10-03 05:54] LABS: Basophils Percent Auto 1.1 % (0.2-1.2); Eosinophils Percent Auto 2.3 % (0-4.4); Hematocrit 34.8 % (37.0-47.0); Hemoglobin 10.9 g/dL (12.0-15.0); Immature Granulocyte Absolute 0.04 K/mm3 (0.00-0.031); Immature Granulocyte Percent A 2.3 % (0-0.5); Lymphocytes Absolute Auto 0.99 K/mm3 (0.9-3.2); Lymphocytes Percent Auto 56.6 % (18.3-44.2); Mean Corpuscular HGB Conc 31.3 g/dl (32-36); Mean Corpuscular Hemoglobin 30.5 pg (26-34); Mean Corpuscular Volume 97.5 fl (80-100); Mean Platelet Volume 9.7 fl (7.4-10.4); Monocytes Absolute Auto 0.2 K/mm3 (0.1-0.6); Monocytes Percent Auto 9.7 % (2.6-8.5); Neutrophils Absolute Auto 0.5 K/mm3 (1.3-6.7); Platelet Count Result 203 k/mm3 (150-375); Red Blood Count 3.57 M/mm3 (4.2-5.4); Red Cell Distribution Width 17.2 % (11.5-14.5)
[2023-10-03 06:04] LABS: Alanine Aminotransferase 21 U/L (6-35); Albumin Level 3.1 g/dL (3.5-5.1); Alkaline Phosphatase 59 U/L (38-126); Anion Gap 1 mmol/L (4-12); Aspartate Amino Transferase 22 U/L (14-36); Bilirubin,Total 0.4 mg/dL (0.2-1.3); Blood Urea Nitrogen 14 mg/dL (7-17); Calcium 7.9 mg/dL (8.4-10.2); Carbon Dioxide 32 mmol/L (22-30); Chloride 102 mmol/L (98-107); Estimated CRCL calculation 121 ml/min; Estimated Glomerular Filt Rate > 60; Glucose 102 mg/dL (65-110); Potassium 3.5 mmol/L (3.4-5.0); Sodium 135 mmol/L (137-145)
[2023-10-03 07:34] LABS: White Blood Count 1.8 K/mm3 (4.5-10.0)
[2023-10-03 07:36] LABS: Anisocytosis 1+; Platelet Estimate Adequate (Adequate)
[2023-10-03 07:37] LABS: Ovalocytes 1+; Schistocytes Rare
[2023-10-03] MEDS: APIXABAN 5 MG TABLET PO (09:23)
[2023-10-03] MEDS: POTASSIUM CHLORIDE 20 MEQ ER TABLET PO (09:26)
[2023-10-03] MEDS: CHOLECALCIFEROL 1,000 UNITS TABLET 5000 UNITS PO (09:26)
[2023-10-03] MEDS: ramipriL 5 MG CAPSULE 20 MG PO (09:26)
[2023-10-03] MEDS: hydroCHLOROthiazide 25 MG TABLET PO (09:26)
[2023-10-03] MEDS: PANTOPRAZOLE 40 MG TABLET PO (09:26)
[2023-10-03] MEDS: ESCITALOPRAM OXALATE 10 MG TABLET 20 MG PO (09:26)
[2023-10-03 14:00] VITALS: BP 129/68; PULSE 90; RESP 18; TEMP 36.7; O2SAT 94
--- NOTE | 2023-10-03 14:13 | PM.IMPN ---
Progress Note: A&P Assessment and Plan (1) Syncope and collapse: Code(s): R55 - Syncope and collapse Status: Acute Assessment and Plan: Probably 2/2 dehydration and Orthostasis Orthostatic VS Falls and safety precautions ECHO unrevealing (2) Fracture, thoracic vertebra, compression: Qualifiers: Encounter type: initial encounter Thoracic vertebra fracture level: T12 Qualified Code(s): S22.080A - Wedge compression fracture of T11-T12 vertebra, initial encounter for closed fracture Code(s): S22.000A - Wedge compression fracture of unspecified thoracic vertebra, initial encounter for closed fracture Status: Acute Assessment and Plan: Neurosurgery consulted - brace given to patient to be worn as directed follow up outpatient for repeat imaging Optimize analgesia - PO meds ordered (3) Metastatic colon cancer to liver: Code(s): C18.9 - Malignant neoplasm of colon, unspecified; C78.7 - Secondary malignant neoplasm of liver and intrahepatic bile duct Status: Chronic Assessment and Plan: Follows with Oncology; on ChemoRx (4) Anemia: Code(s): D64.9 - Anemia, unspecified Status: Chronic Assessment and Plan: 10.7 and 34.5 Monitor, with goal Hb >7 (5) Essential (primary) hypertension: Code(s): I10 - Essential (primary) hypertension Status: Chronic Assessment and Plan: Resume Ramipril (6) Pulmonary embolism: Code(s): I26.99 - Other pulmonary embolism without acute cor pulmonale Status: Chronic Assessment and Plan: On Eliquis (7) Depression with anxiety: Code(s): F41.8 - Other specified anxiety disorders Status: Chronic Assessment and Plan: Escitalopram, Alprazolam (8) Leucopenia: Code(s): D72.819 - Decreased white blood cell count, unspecified Status: Acute Assessment and Plan: maybe 2/2 chemoRx Monitor (9) Hypokalemia: Code(s): E87.6 - Hypokalemia Status: Resolved Assessment and Plan: 3.6 today continue PO continue to monitor Subjective Date/time seen: 10/03/23 14:13 Interval history: Admission: Chief Complaint: 1. Fall 2. Loss of consciousness 3. Back pain Narrative: Nori Thurston is a 63 yo F with a mHx significant for obesity, metastatic colon Ca, GERD, depression w/Anxiety, HTN, Hypothyroidism. 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 She attests to back pain on waking up; it was sharp, rated 10, aggravated by truncal movement; alleviated by immobility; associated by an unstable gait and poor mobility. She does not smoke/chew tobacco, drink alcohol or consume recreational drugs; her family hx is significant for colon ca 4/3: DISCHARGED Review of Systems Review of Systems: All systems reviewed & are unremarkable except as noted in HPI and below Exam Narrative: GENERAL: Well-appearing, well-nourished, and in no acute distress. HEAD: Normocephalic, atraumatic. EYES: PERRLA and EOMI. ENT: Nares clear. Mucous membranes moist. NECK: Supple. CHEST: Lungs clear to auscultation. No respiratory distress. HEART: RRR. Normal peripheral pulses. ABDOMEN: Soft, non-tender without rebound or guarding, nondistended. EXTREMITIES: Normal range of motion. No edema. Mild midline lower thoracic spinal tenderness. SKIN: Warm, dry, no rash. NEURO: No focal deficits. Alert and oriented x3. Normal strength and sensation
--- NOTE | 2023-10-03 14:15 | PM.DS ---
DS: Admitting Diagnosis Discharge Date 10/03/2023 Admitting Diagnosis Syncope/T-12 fracture DS: Discharge Diagnosis Discharge Diagnosis (1) Syncope and collapse: Code(s): R55 - Syncope and collapse Status: Acute (2) Fracture, thoracic vertebra, compression: Qualifiers: Encounter type: initial encounter Thoracic vertebra fracture level: T12 Qualified Code(s): S22.080A - Wedge compression fracture of T11-T12 vertebra, initial encounter for closed fracture Code(s): S22.000A - Wedge compression fracture of unspecified thoracic vertebra, initial encounter for closed fracture Status: Acute (3) Metastatic colon cancer to liver: Code(s): C18.9 - Malignant neoplasm of colon, unspecified; C78.7 - Secondary malignant neoplasm of liver and intrahepatic bile duct Status: Chronic (4) Anemia: Code(s): D64.9 - Anemia, unspecified Status: Chronic (5) Essential (primary) hypertension: Code(s): I10 - Essential (primary) hypertension Status: Chronic (6) Pulmonary embolism: Code(s): I26.99 - Other pulmonary embolism without acute cor pulmonale Status: Chronic (7) Depression with anxiety: Code(s): F41.8 - Other specified anxiety disorders Status: Chronic (8) Leucopenia: Code(s): D72.819 - Decreased white blood cell count, unspecified Status: Acute (9) Hypokalemia: Code(s): E87.6 - Hypokalemia Status: Resolved Plan Syncope and collapse: Probably 2/2 dehydration and Orthostasis Orthostatic VS Falls and safety precautions ECHO unrevealing Wedge compression fracture of unspecified thoracic vertebra, initial encounter for closed fracture? ? Neurosurgery consulted - brace given to patient to be worn as directed follow up outpatient for repeat imaging Optimize analgesia - PO meds ordered(3) Metastatic colon cancer to liver: ? Malignant neoplasm of colon, unspecified; C78.7 - Secondary malignant neoplasm of liver and intrahepatic bile duct? Follows with Oncology; on ChemoRx (4) Anemia: ? ? 10.7 and 34.5 Monitor, with goal Hb >7(5) Essential (primary) hypertension: ? Essential (primary) hypertension Resume Ramipril (6) Pulmonary embolism: On Eliquis(7) Depression with anxiety: ? ? ? F41.8 - Other specified anxiety disorders Escitalopram, Alprazolam Leucopenia: maybe 2/2 chemoRx Monitor (9) Hypokalemia: 3.6 today continue PO continue to monitor DS: Summary Hospital Course Reason for hospitalization: Syncope/T-12 fracture Hospital Course: Admission: Medical Record Chief Complaint: 1. Fall 2. Loss of consciousness 3. Back pain Narrative: Nori Thurston is a 63 yo F with a mHx significant for obesity, metastatic colon Ca, GERD, depression w/Anxiety, HTN, Hypothyroidism. 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 She attests to back pain on waking up; it was sharp, rated 10, aggravated by truncal movement; alleviated by immobility; associated by an unstable gait and poor mobility. She does not smoke/chew tobacco, drink alcohol or consume recreational drugs; her family hx is significant for colon ca Neurology Plan: Medical Record The patient is a pleasant 63-year-old female who had what sounds like a syncopal type episode in her kitchen on 09/29/2023 while reaching for something, she had brief loss of consciousness and awoke with immediate midline lower thoracic back pain. ? she was found to omalley
[2023-10-03] MEDS: HEPARIN SODIUM LOCK FLUSH 500 UNITS/5 ML SYRINGE IV PUSH (15:50)
== END 2023-10-03 17:50 | disposition home health service (06) ==
LOC: ANHED 22:22 → ANH2MED 10-01 14:55
PROVIDERS: Admitting Provider Internal Medicine; Emergency Provider Student in an Organized Health Care Education/Training Program; PCP Family Medicine; Visit Provider Hospitalist
DX: R55 Syncope and collapse (principal); S22.081A Stable burst fracture of T11-T12 vertebra, initial encounter for closed fracture; W18.39XA Other fall on same level, initial encounter; C18.9 Malignant neoplasm of colon, unspecified; C78.7 Secondary malignant neoplasm of liver and intrahepatic bile duct; C7A.8 Other malignant neuroendocrine tumors; I26.99 Other pulmonary embolism without acute cor pulmonale; D72.819 Decreased white blood cell count, unspecified; D64.9 Anemia, unspecified; E66.01 Morbid (severe) obesity due to excess calories; Z68.41 Body mass index [BMI] 40.0-44.9, adult; I11.9 Hypertensive heart disease without heart failure; E87.6 Hypokalemia; F41.8 Other specified anxiety disorders; F32.9 Major depressive disorder, single episode, unspecified; E89.0 Postprocedural hypothyroidism; R94.31 Abnormal electrocardiogram [ECG] [EKG]; R91.8 Other nonspecific abnormal finding of lung field; M47.812 Spondylosis without myelopathy or radiculopathy, cervical region; G47.33 Obstructive sleep apnea (adult) (pediatric); E55.9 Vitamin D deficiency, unspecified; Z90.49 Acquired absence of other specified parts of digestive tract; Z86.718 Personal history of other venous thrombosis and embolism; Z87.891 Personal history of nicotine dependence; Z79.60 Long term (current) use of unspecified immunomodulators and immunosuppressants; Z79.01 Long term (current) use of anticoagulants; Z79.899 Other long term (current) drug therapy
CPT/HCPCS: 36415; 70450; 71260; 72125; 72129; 72132; 74177; 80053; 81003; 82550; 83605; 84484; 85025; 85610; 85730; 86850; 86900; 86901; 93005; 93306; 96361; 96374; 96375; 97110; 97161; 97165; 97530; 97535; 99285; A9270; G0378; J1170; J1642; J2270; J2405; J7030; J7120; Q9967

== ENCOUNTER 2024-01-23 09:36 | Emergency (ER) | payer OTHER, SELFPAY ==
[2024-01-23] VITALS (19 sets, daily range): BP systolic 87–155; BP diastolic 31–68; PULSE 83–125; RESP 14–20; TEMP 36.6–37.1; O2SAT 94–100
--- NOTE | ~2024-01-23 | CT_ITS ---
CT abdomen pelvis w con Ordering provider: Namita Flores III, DO History: 63 years Female with . low abdominal pain . Comparison: September 30, 2023 Technique: CT abdomen and pelvis with IV and without oral contrast. Automated exposure control and it erative reconstruction technique were employed. The dose-length product was 1125.12 mGy-cm. 100 MLO O mnipaque 350 was given IV. Findings: VISUALIZED LOWER CHEST: Multiple nodules in both lung bases with the largest measuring 10 mm on the r ight side. UPPER ABDOMINAL ORGANS: Liver: Hypodense area seen in the right lobe of the liver segment 7 measuring 2.2 x 2.9 cm.. Follow-u p advised. Gallbladder: Status post cholecystectomy. Spleen: Normal. Stomach/duodenum: Small sliding hiatus hernia. Pancreas: Normal. Adrenals: Normal. Kidneys: Slightly dilated area seen in the left renal artery which may indicate an aneurysm measuring 9 mm.. PELVIC ORGANS: The bladder is normal. BOWEL AND MESENTERY: Colon: Postoperative changes seen in the right side of the colon with thickening of the wall and surr ounding fat stranding suggestive of inflammatory process versus mass. Fecal material is loaded in the colon.. Appendix is not demonstrated. Small Bowel: Normal. No obstruction. Peritoneum/mesentery: No free air or free fluid. Nodules seen in the mesentery anteriorly which is gardiner ggestive of metastatic lesions. The largest measures 2.2 cm. The peritoneal nodules appear more than the previous study and slightly larger . RETROPERITONEUM: Mild atheromatous disease of the abdominal aorta. No retroperitoneal lymphadenopat hy. MUSCULOSKELETAL: Superficial soft tissues: The superficial soft tissues are normal. Bones: Age appropriate degenerative changes of the spine. Sclerotic changes with compression fracture s seen in T12 most likely acute metastatic and not seen in the previous study.. IMPRESSION: 1. Thickening of the wall of the bowel in the right side of the colon with minimal fat stranding in the area. This is highly suggestive of a mass versus inflammatory changes. Follow-up advised. 2. Constipation 3. Nodularity of the mesentery suggestive of metastatic lesions which are more in number and larger in size. 4. Hepatic lesion minimally changed since previous study. The possibility of peripheral enhancement may represent a hemangioma. Follow-up advised. 5. Compression fracture of T12 most likely due to metastasis. Reviewed, dictated and finalized at location A. IMPRESSION: 1. Thickening of the wall of the bowel in the right side of the colon with min imal fat stranding in the area. This is highly suggestive of a mass versus infl ammatory changes. Follow-up advised. 2. Constipation 3. Nodularity of the mesentery suggestive of metastatic lesions which are more in number and larger in size. 4. Hepatic lesion minimally changed since previous study. The possibility of p eripheral enhancement may represent a hemangioma. Follow-up advised. 5. Compression fracture of T12 most likely due to metastasis.
--- NOTE | ~2024-01-23 | XR_ITS ---
XR chest 2V 01/23/2024 11:21 Indication: Dizziness and weakness. History of colon cancer. Patient on chemotherapy. Procedure: AP and lateral views the chest Comparison: CT dated 09/30/2023 Findings: Central venous catheter tip in the SVC. Heart size normal. Calcified granuloma left upper t horax. No focal pneumonia, edema, pleural effusion or pneumothorax. No acute osseous abnormality. Impression: 1: No acute cardiopulmonary disease. Reviewed, dictated and finalized at location B. Impression: 1: No acute cardiopulmonary disease.
--- NOTE | 2024-01-23 09:45 | ECG_ITS ---
Test Date: 2024-01-23 09:47:28 Measurements Intervals [place] Rate: 93 P: 26 MN: 128 QRS: 44 QRSD: 90 T: -29 QT: 408 QTc: 510 Interpretive Statements SINUS RHYTHM MINIMAL Q WAVES- INFERIOR LEADS ST-T WAVE ABNORMALITY IN ANTEROLAT/INF LEADS- CONSIDER ISCHEMIA ABNORMAL ECG No previous ECG available for comparison Electronically Signed On 01-23-2024 13:11:39 CDT by Richard Wright D.O.
--- NOTE | 2024-01-23 10:06 | ED.DIZZY ---
HPI - Dizziness General Chief Complaint: Dizziness Stated Complaint: dizziness x 2 days Time Seen by Provider: 01/23/24 09:52 History of Present Illness HPI Narrative: Pt presents with dizziness and lightheadedness and generalized weakness today. Pt has colon cancer treated at [facility]. Pt just completed round of chemo and is awaiting immune therapy. Pt took some mag citrate for constipation 2 days ago which caused her to vomit several times. The vomiting has resolved. Pt denies black or bloody stools or fever. Related Data Home Medications Medication Instructions Recorded Confirmed cholecalciferol (vitamin D3) 125 125 mcg PO DAILY 07/12/22 10/01/23 mcg (5,000 unit) capsule apixaban 5 mg tablet (Eliquis) 5 mg PO BID 09/30/23 10/01/23 potassium chloride 20 mEq 20 meq PO BID 09/30/23 10/01/23 tablet,extended release(part/cryst) Allergies Allergy/AdvReac Type Severity Reaction Status Date / Time No Known Allergies Allergy Mild Verified 01/23/24 09:51 Review of Systems Review of Systems: All systems reviewed & are unremarkable except as noted in HPI and below PMFSH Past Medical History Medical History (Updated 01/23/24 @ 18:22 by Namita Flores III, DO) Allergic rhinitis, unspecified Anemia Anxiety Depression with anxiety Esophageal reflux Essential (primary) hypertension Insomnia, unspecified Major depressive disorder, recurrent, moderate Morbid (severe) obesity due to excess calories Obstructive sleep apnea Postprocedural hypothyroidism (Unknown) Pulmonary embolism Sleep apnea Vitamin D deficiency, unspecified Surgical History Surgical History History of hysterectomy uterus only, bladder suspension 12/2013 History of thyroidectomy 2008 Hx of cholecystectomy 2002 S/P removal of thyroid nodule 1991 Family History Family History (Updated 07/20/22 @ 07:50 by Judith Machuca RN) Mother Colitis Mouth cancer Age-related macular degeneration Father Bladder cancer Alzheimer disease Depression COPD (chronic obstructive pulmonary disease) Carcinoma of colon Age-related macular degeneration Hypertension Social History Social History (Updated 07/18/22 @ 14:10 by Julia Amin MA) Smoking status: Former smoker Smoking end date: 07/02/79 Alcohol intake: former Substance use: never Do You Feel Safe in your Home?: Yes Lack of Transportation: No Lack of Food: Never True Current Housing: I Have Housing Concerned About Future Housing: No Difficulty Paying Gas/Electric Bills: No Difficulty Paying for Meds: No Currently Unemployed: No Education: High School Diploma/GED Difficulty w/ Childcare or Family Care: No Living arrangements: with family Occupation/Education: occupation Gender identity (if verbalized by the patient): Female Sexual Orientation (if Verbalized by the Patient): Straight or Heterosexual Spiritual care concerns: No Exam Const: General: healthy appearing and no acute distress Nutritional Appearance: well nourished Orientation/consciousness: patient oriented x3 Limitations: no limitations HENMT: Head: normal to inspection Eyes: Conjunctivae: conjunctivae normal Pupils: Equal, round and reactive pupils present EOM: EOMs intact bilaterally Neck: Neck: normal visual inspection Chest: Chest palpation & inspection: normal inspection of the chest Resp: Effort & Inspection: normal respiratory effort Auscultation: clear to auscultation bilaterally Cardio: Rate: regular rate Rhythm: regular rhythm GI: Auscultation: normal bowel sounds Other: mild lower abdominal tenderness Skin: General skin exam: normal color Rashes: no rashes Wounds: no wounds Neuro: General: patient oriented x3, moves all extremities, no meningeal signs, no focal motor deficits and CN's II-XI intact bilaterally Speech: normal speech Extrem: General: normal to inspection a
[2024-01-23] MEDS: SODIUM CHLORIDE 0.9% IV 500 ML 999 ML IV CONT (11:00)
[2024-01-23 11:01] LABS: Basophils Percent Auto 0.3 % (0.2-1.2); Eosinophils Percent Auto 0.1 % (0-4.4); Immature Granulocyte Absolute 0.12 K/mm3 (0.00-0.031); Lymphocytes Absolute Auto 0.87 K/mm3 (0.9-3.2); Lymphocytes Percent Auto 7.5 % (18.3-44.2); Mean Corpuscular HGB Conc 29.3 g/dl (32-36); Mean Corpuscular Hemoglobin 27.4 pg (26-34); Mean Corpuscular Volume 93.3 fl (80-100); Mean Platelet Volume 9.6 fl (7.4-10.4); Monocytes Absolute Auto 1.1 K/mm3 (0.1-0.6); Monocytes Percent Auto 9.4 % (2.6-8.5); Neutrophils Absolute Auto 9.4 K/mm3 (1.3-6.7); Neutrophils Percent Auto 81.7 % (45.5-73.1); Nucleated Red Blood Cells Perc 0.3 % (0.0-0.2); Platelet Count Result 341 k/mm3 (150-375); Red Blood Count 2.23 M/mm3 (4.2-5.4); Red Cell Distribution Width 17.2 % (11.5-14.5); White Blood Count 11.6 K/mm3 (4.5-10.0)
[2024-01-23 11:20] LABS: Alanine Aminotransferase 12 U/L (6-35); Albumin Level 3.2 g/dL (3.5-5.1); Alkaline Phosphatase 47 U/L (38-126); Anion Gap 12 mmol/L (4-12); Aspartate Amino Transferase 16 U/L (14-36); Bilirubin,Total 0.6 mg/dL (0.2-1.3); Blood Urea Nitrogen 28 mg/dL (7-17); Calcium 7.4 mg/dL (8.4-10.2); Carbon Dioxide 25 mmol/L (22-30); Chloride 93 mmol/L (98-107); Estimated CRCL calculation 83 ml/min; Estimated Glomerular Filt Rate > 60; Glucose 110 mg/dL (65-110); Potassium 2.7 mmol/L (3.4-5.0); Sodium 130 mmol/L (137-145)
[2024-01-23 11:24] LABS: Hematocrit 20.8 % (37.0-47.0); Hemoglobin 6.1 g/dL (12.0-15.0)
[2024-01-23 11:36] LABS: Hypochromasia 2+; Platelet Estimate Adequate (Adequate)
[2024-01-23 11:37] LABS: Ovalocytes 1+; Schistocytes None Seen; Tear Drop Cells 1+
[2024-01-23] MEDS: POTASSIUM CHLORIDE 20 MEQ ER TABLET PO (12:29)
[2024-01-23] MEDS: KCL 20 MEQ/SW 100 ML 100 ML 50 MEQ IVPB (12:31)
[2024-01-23] MEDS: SODIUM CHLORIDE 0.9% IV 1,000 ML 999 ML IV CONT (12:48)
[2024-01-23 13:32] LABS: Appearance Urine Clear (Clear); Bilirubin Urine Negative (Negative); Blood Urine Negative (Negative); Color Urine Yellow (Yellow); Glucose Urine UA Negative (Negative); Ketones Urine Trace mg/dL (Negative); Leukocyte Esterase Ur Negative LEU/UL (Negative); Nitrate Urine Negative (Negative); Protein Urine Negative (Negative); Specific Grav Ur 1.035 (1.001-1.035); Urobilinogen Urine 0.2 mg/dL (<2.0); pH Urine 5.5 (5.0-9.0)
[2024-01-23 13:34] LABS: Add Urine Microscopic? NO
[2024-01-23] MEDS: SODIUM CHLORIDE 0.9% IV 250 ML 30 ML IV CONT (15:38)
[2024-01-23] MEDS: TUBING, BLOOD SET 1 EACH XX (15:49)
--- NOTE | 2024-01-23 18:26 | PC.NURSE ---
Talked / [place] transfer center at 1756 and updated on patient status. Transfer center verified patient accepted at [facility].
[2024-01-23] MEDS: PANTOPRAZOLE SODIUM IV 40 MG VIAL IV PUSH (18:33)
[2024-01-23 19:52] LABS: Hematocrit 28.8 % (37.0-47.0); Hemoglobin 9.2 g/dL (12.0-15.0)
== END 2024-01-23 21:42 | disposition short-term general hospital (02) ==
PROVIDERS: Emergency Provider Emergency Medicine; PCP Family Medicine
DX: K92.2 Gastrointestinal hemorrhage, unspecified (principal); D64.9 Anemia, unspecified; E87.6 Hypokalemia; C18.9 Malignant neoplasm of colon, unspecified; E66.01 Morbid (severe) obesity due to excess calories; Z68.41 Body mass index [BMI] 40.0-44.9, adult; E55.9 Vitamin D deficiency, unspecified; E89.0 Postprocedural hypothyroidism; K21.9 Gastro-esophageal reflux disease without esophagitis; G47.30 Sleep apnea, unspecified; Z86.711 Personal history of pulmonary embolism; Z92.21 Personal history of antineoplastic chemotherapy; Z87.891 Personal history of nicotine dependence; Z90.49 Acquired absence of other specified parts of digestive tract; Z90.710 Acquired absence of both cervix and uterus; Z79.01 Long term (current) use of anticoagulants; Z79.899 Other long term (current) drug therapy; R94.31 Abnormal electrocardiogram [ECG] [EKG]; K59.00 Constipation, unspecified; K76.9 Liver disease, unspecified; R93.5 Abnormal findings on diagnostic imaging of other abdominal regions, including retroperitoneum; M84.58XA Pathological fracture in neoplastic disease, other specified site, initial encounter for fracture
CPT/HCPCS: 36415; 36430; 71046; 74177; 80053; 81003; 85014; 85018; 85025; 86850; 86900; 86901; 86923; 93005; 96361; 96365; 96375; 99285; A9270; J2470; J3480; J7030; J7040; J7050; P9016; Q9967